=== PATIENT | female | born 1975 | race Caucasian/White ===

== ENCOUNTER 2017-10-29 12:49 | Inpatient (IN) | payer OTHER ==
[2017-10-29 13:05] LABS: ABSOLUTE BASOPHILS # (AUTO) 0.1 10^3/uL (0.0-0.2); ABSOLUTE EOSINOPHILS # (AUTO) 0.3 10^3/uL (0.0-0.6); ABSOLUTE LYMPHOCYTES (AUTO) 3.7 10^3/uL (0.5-4.7); ABSOLUTE MONOCYTES (AUTO) 0.5 10^3/uL (0.1-1.4); ABSOLUTE NEUT (AUTO) 7.9 10^3/uL (1.7-8.2); BASOPHILS % (AUTO) 0.7 % (0-2); EOSINOPHILS % (AUTO) 2.6 % (0-6); HEMATOCRIT 41.8 % (36.0-47.0); HEMOGLOBIN 13.8 g/dL (12.0-15.5); LYMPHOCYTES % (AUTO) 29.4 % (13-45); MEAN CORPUSCULAR HEMOGLOBIN 29.3 pg (27.0-33.4); MEAN CORPUSCULAR HGB CONC 33.1 g/dL (32.0-36.0); MEAN CORPUSCULAR VOLUME 89 fl (80-97); MONOCYTES % (AUTO) 3.8 % (3-13); PLATELET COUNT 302 10^3/uL (150-450); RED BLOOD COUNT 4.72 10^6/uL (3.72-5.28); RED CELL DISTRIBUTION WIDTH 14.3 % (11.5-14.0); SEGMENTED NEUTROPHILS % (AUTO) 63.5 % (42-78); TOTAL CELLS COUNTED % (AUTO) 100 %; WHITE BLOOD COUNT 12.4 10^3/uL (4.0-10.5)
[2017-10-29 13:07] LABS: INTERNATIONAL RATION (INR) 0.85
--- NOTE | 2017-10-29 13:13 | RADIOLOGY REPORT (SQ) ---
EXAM DESCRIPTION: CT HEAD WITHOUT COMPLETED DATE/TIME: 10/29/2017 1:02 pm REASON FOR STUDY: Abnormal Speech COMPARISON: None. TECHNIQUE: Axial images acquired through the brain without intravenous contrast. Images reviewed wi th bone, brain and subdural windows. Additional sagittal and coronal reconstructions were generated. Images stored on PACS. All CT scanners at this facility use dose modulation, iterative reconstruction, and/or weight based d osing when appropriate to reduce radiation dose to as low as reasonably achievable (ALARA). [facility]: Dose Right [facility]: CareDose [facility]: Dose Right [facility]: Teradose 4D [facility]: Peerius RADIATION DOSE: CT Rad equipment meets quality standard of care and radiation dose reduction techniq ues were employed. CTDIvol: 53.2 mGy. DLP: 1124 mGy-cm. mGy. LIMITATIONS: None. FINDINGS: VENTRICLES: Normal size and contour. CEREBRUM: No masses. No hemorrhage. No midline shift. No evidence for acute infarction. Normal gra y/white matter differentiation. No areas of low density in the white matter. CEREBELLUM: No masses. No hemorrhage. No alteration of density. No evidence for acute infarction. EXTRAAXIAL SPACES: No fluid collections. No masses. ORBITS AND GLOBE: No intra- or extraconal masses. Normal contour of globe without masses. CALVARIUM: No fracture. PARANASAL SINUSES: No fluid or mucosal thickening. SOFT TISSUES: No mass or hematoma. OTHER: No other significant finding. IMPRESSION: NORMAL BRAIN CT WITHOUT CONTRAST. EVIDENCE OF ACUTE STROKE: NO. COMMENT: Pertinent findings on the imaging study reported as a CRITICAL RESULT to Dr Hernandez at13:00 on 10/29/2017. Category of Critical Result: CT code stroke Quality ID # [id number]: Final reports with documentation of one or more dose reduction techniques (e.g., Au tomated exposure control, adjustment of the mA and/or kV according to patient size, use of iterative reconstruction technique) TECHNICAL DOCUMENTATION: JOB ID: [id number]- All Rights Reserved Reading location - IP/workstation name: [facility]
[2017-10-29 13:25] LABS: ALANINE AMINOTRANSFERASE 17 U/L (9-52); ALBUMIN 3.9 g/dL (3.5-5.0); ALKALINE PHOSPHATASE 100 U/L (38-126); ANION GAP 12 (5-19); ASPARTATE AMINO TRANSFERASE 23 U/L (14-36); BILIRUBIN,DIRECT 0.2 mg/dL (0.0-0.4); BILIRUBIN,TOTAL 0.2 mg/dL (0.2-1.3); BLOOD UREA NITROGEN 7 mg/dL (7-20); CALCIUM 9.7 mg/dL (8.4-10.2); CARBON DIOXIDE 29 mmol/L (22-30); CHLORIDE 101 mmol/L (98-107); CREATINE KINASE 42 U/L (30-135); GLUCOSE 100 mg/dL (75-110); POTASSIUM 4.2 mmol/L (3.6-5.0); SODIUM 142.4 mmol/L (137-145); TOTAL PROTEIN 6.3 g/dL (6.3-8.2)
[2017-10-29 13:36] LABS: CREATINE KINASE MB 0.26 ng/mL (<4.55)
[2017-10-29 13:38] LABS: TROPONIN I < 0.012 ng/mL
--- NOTE | 2017-10-29 13:38 | EKG REPORT ---
SEVERITY:- BORDERLINE ECG - SINUS RHYTHM BORDERLINE T ABNORMALITIES, DIFFUSE LEADS : Confirmed by: Terrance Feliz MD 29-Oct-2017 13:37:15
--- NOTE | 2017-10-29 13:38 | RADIOLOGY REPORT (SQ) ---
EXAM DESCRIPTION: CHEST SINGLE VIEW COMPLETED DATE/TIME: 10/29/2017 1:14 pm REASON FOR STUDY: Abnormal Speech COMPARISON: None. EXAM PARAMETERS: NUMBER OF VIEWS: One view. TECHNIQUE: Single frontal radiographic view of the chest acquired. RADIATION DOSE: NA LIMITATIONS: None. FINDINGS: LUNGS AND PLEURA: No opacities, masses or pneumothorax. No pleural effusion. Some minimal linear densities are identified in left lower lung field most consistent with subsegmental atelectas is. MEDIASTINUM AND HILAR STRUCTURES: No masses. Contour normal. HEART AND VASCULAR STRUCTURES: Heart normal in size. Normal vasculature. BONES: No acute findings. HARDWARE: None in the chest. OTHER: No other significant finding. IMPRESSION: NO ACUTE RADIOGRAPHIC FINDING IN THE CHEST. TECHNICAL DOCUMENTATION: JOB ID: [id number] [employer]- All Rights Reserved Reading location - IP/workstation name: [email or web address]
--- NOTE | 2017-10-29 13:58 | ER Document Report ---
ED General - General Chief Complaint: S/S of Possible Stroke Stated Complaint: POSSIBLE STROKE Time Seen by Provider: 10/29/17 13:34 Notes: This is a 42-year-old female patient who was at work. [place] a little abnormal. [place] like she was going to pass out but did not. [place] like her feet gave out from underneath her. Was having a hard time talking. Did not have any focal weakness. Went home. Family member stated that she was in acting normal. States that they were concerned she was having a stroke. Patient was brought in by ambulance. On arrival patient was evaluated immediately on arrival. Had no slurred speech. NIH stroke scale was 0. Patient was taken to CT scan. Patient reevaluated patient got back from CT scan. CT completed the workup in [facility]. Patient states that she intermittently has fevers and that she has seen Dr. Canada in the [facility] and they have run tests on her but still do not know why she is having intermittent fevers. She does state that she has a history of headaches. Has had some altered mental status with migraines in the past. TRAVEL OUTSIDE OF THE [place] IN LAST 30 DAYS: No - [facility] Onset: Just prior to arrival - Related Data Allergies/Adverse Reactions: No Known Allergies Allergy (Unverified 02/17/14 15:08) Past Medical History - General Information source: Patient - Social History Smoking Status: Current Every Day Smoker Cigarette use (# per day): Yes Chew tobacco use (# tins/day): No Frequency of alcohol use: Occasional Drug Abuse: None Lives with: Family Family History: Malignancy Patient has suicidal ideation: No Patient has homicidal ideation: No - Past Medical History Cardiac Medical History: Denies: Hx Coronary Artery Disease, Hx Heart Attack, Hx Hypertension Pulmonary Medical History: Denies: Hx Asthma, Hx Bronchitis, Hx COPD, Hx Pneumonia Neurological Medical History: Denies: Hx Cerebrovascular Accident, Hx Seizures Renal/ Medical History: Denies: Hx Peritoneal Dialysis Musculoskeltal Medical History: Denies Hx Arthritis Review of Systems - Review of Systems Constitutional: denies: Fever, Malaise, Weakness EENT: denies: Eye pain, Double vision, Ear discharge, Throat swelling Cardiovascular: denies: Chest pain, Heart racing, Orthopnea, Dyspnea, Syncope, Dizziness Respiratory: denies: Cough, Hurts to breathe, Hemoptysis, Wheezing Gastrointestinal: denies: Abdominal pain, Nausea, Vomiting Genitourinary: denies: Burning, Dysuria, Frequency Musculoskeletal: denies: Back pain, Muscle pain, Leg swelling Skin: denies: Change in color, Dryness, Lesions, Lumps, Rash Hematologic/Lymphatic: denies: Anemia, Blood clots, Easy bleeding, Easy bruising Neurological/Psychological: Confusion, Gait changes, Headaches. denies: Weakness, Paralysis, Seizure, Lost consciousness Physical Exam - Vital signs Vitals: Pulse Resp BP Pulse Ox 78 17 103/73 94 10/29/17 13:42 10/29/17 13:42 10/29/17 13:42 10/29/17 13:42 Interpretation: Normal - General General appearance: Appears well, Alert - HEENT Head: Normocephalic, Atraumatic Eyes: Normal Pupils: PERRL - Respiratory Respiratory status: No respiratory distress Chest status: Nontender Breath sounds: Normal Chest palpation: Normal - Cardiovascular Rhythm: Regular Heart sounds: Normal auscultation Murmur: No - Abdominal Inspection: Normal Distension: No distension Bowel sounds: Normal Tenderness: Nontender Organomegaly: No organomegaly - Back Back: Normal, Nontender - Extremities General upper extremity: Normal inspection, Nontender, Normal color, Normal ROM , Normal temperature General lower extremity: Normal inspection, Nontender, Normal color, Normal ROM , Normal temperature, Normal weight bearing. No: Mary Beth's sign - Neurological Neuro grossly intact: Yes Cognition: Normal Orientation: AAOx4 Avni Coma Scale Eye Opening: Spontaneous Avni Coma Scale Verbal: Oriented Avni Coma Scale Motor: Obeys Commands Avni Coma Scale Total: 15 Speech: Normal Cranial nerves: Normal Cerebellar coordination: Normal Motor strength normal: LUE, RUE, LLE, RLE Additional motor exam normals: Equal emt paramedic. No: Involuntary movements, Pronator drift, Weakness, Hemiplegia Babinski reflex: Normal (flexor plantar) Sensory: Normal - Psychological Associated symptoms: Normal affect, Normal mood - Skin Skin Temperature: Warm Skin Moisture: Dry Skin Color: Normal Course - Re-evaluation Re-evalutation: 10/29/17 14:[address] was ordered from the ambulance bay. Negative head CT. Chest x-ray unremarkable. Labs show slightly elevated WBC count. We will add on Lyme's titer based on the fact the patient has been having some headaches and fevers of unknown origin with a questionable tick bite in the past. Try to get some migraine treatment to see if this will help as well. 10/29/17 14:22 Chest X-Ray 10/29/17 12:54 IMPRESSION: NO ACUTE RADIOGRAPHIC FINDING IN THE CHEST. Head CT 10/29/17 12:54 IMPRESSION: NORMAL BRAIN CT WITHOUT CONTRAST. EVIDENCE OF ACUTE STROKE: NO. 10/29/17 16:[address] and chest x-ray unremarkable. Patient still seems a little groggy. Uncertain whether this represents a TIA or just altered mental status. With this history of intermittent fevers I am concerned. The Lyme's titers were added. At this time I feel uncomfortable discharging. I feel the patient needs to be admitted for observation with ultrasound potentially echocardiogram potentially, repeat cardiac labs potentially and may be even a spinal tap. I did not feel compelled at this time to do a spinal tap in the ER as patient is not acutely altered and she does not have a fever. I have discussed the case with hospitalist. Hospitalist will evaluate patient. We did discuss potentially having interventional radiology versus anesthesia do an LP to complete the workup. I do agree with this plan at this time. Patient is comfortable staying. Will admit to Dr. Guo - Vital Signs Vital signs: Temp Pulse Resp BP Pulse Ox 78 17 103/73 94 10/29/17 13:42 10/29/17 13:42 10/29/17 13:42 10/29/17 13:42 - Laboratory Result Diagrams: 10/29/17 12:24 10/29/17 12:24 Laboratory results interpreted by me: 10/29/17 10/29/17 10/29/17 12:24 12:24 12:24 WBC 12.4 H RDW 14.3 H APTT 36.0 H Neonat Total Bilirubin 0.0 L - EKG Interpretation by Mi EKG shows normal: Sinus rhythm, [place], Intervals, QRS Complexes, ST-T Waves Discharge - Discharge Clinical Impression: Mental status alteration Qualifiers: Altered mental status type: unspecified Qualified Code(s): R41.82 - Altered mental status, unspecified Leukocytosis Qualifiers: Leukocytosis type: unspecified Qualified Code(s): D72.829 - Elevated white blood cell count, unspecified Condition: Good Disposition: ADMITTED OBSERVATION Admitting Provider: Hospitalist - [facility] Unit Admitted: Medical Floor Referrals: RON CANADA MD [Primary Care Provider] - Follow up as needed
[2017-10-29] MEDS ORDERED: KETOROLAC TROMETHAMINE INJ/PF 30 MG/1 ML SDV IV ONE (14:17)
[2017-10-29] MEDS ORDERED: DIPHENHYDRAMINE HCL 50 MG/ML VIAL IV ONE (14:18)
[2017-10-29] MEDS ORDERED: METOCLOPRAMIDE HCL INJ/PF 10 MG/2 ML SDV IV ONE (14:18)
[2017-10-29 14:59] LABS: APPEARANCE,URINE CLEAR; BILIRUBIN,URINE NEGATIVE (NEGATIVE); COLOR,URINE STRAW; GLUCOSE, URINE NEGATIVE (NEGATIVE); KETONES,URINE NEGATIVE (NEGATIVE); LEUKOCYTE ESTERASE,URINE NEGATIVE (NEGATIVE); NITRITE,URINE NEGATIVE (NEGATIVE); PROTEIN,URINE NEGATIVE (NEGATIVE); URINE SPECIFIC GRAVITY 1.003; UROBILINOGEN,URINE NEGATIVE mg/dL (<2.0)
[2017-10-29] MEDS ORDERED: ASPIRIN 325 MG TABLET PO ONE (15:53)
--- NOTE | 2017-10-29 16:04 | RADIOLOGY REPORT (SQ) ---
EXAM DESCRIPTION: MRI HEAD WITHOUT COMPLETED DATE/TIME: 10/29/2017 3:25 pm REASON FOR STUDY: altered mental status COMPARISON: CT brain 10/29/2017 TECHNIQUE: Multiplanar imaging includes non-contrasted T1, T2, FLAIR, and diffusion with ADC map seq uences. Images stored on PACS. LIMITATIONS: None. FINDINGS: ANATOMY: No developmental anomalies. Normal vascular flow voids. Pituitary fossa normal. CSF SPACES: Normal in size and contour. No hemorrhage. CEREBRUM: Sulci and gyri normal in size and contour. Normal white matter signal on FLAIR imaging. No evidence of hemorrhage, mass, or extraaxial fluid collection. POSTERIOR FOSSA: No signal alteration. No hemorrhage. No edema, masses or mass effect. Internal oz tory canals, cerebello-pontine angles, mastoids normal. DIFFUSION IMAGING: Negative for acute or sub-acute infarction. ORBITS: No masses. Globes normal. PARANASAL SINUSES: Mucous membrane thickening right maxillary sinus with mucous or serous retention cyst. OTHER: No other significant finding. IMPRESSION: Unremarkable study. No MR evidence of acute ischemic change. EVIDENCE OF ACUTE STROKE: NO. TECHNICAL DOCUMENTATION: JOB ID: [id number]- All Rights Reserved Reading location - IP/workstation name: [facility]
[2017-10-29] MEDS ORDERED: ONDANSETRON HCL INJ/PF 4 MG/2 ML SDV IV PRN (16:42)
[2017-10-29] MEDS ORDERED: ALBUTEROL SULFATE 0.083% NEB 2.5 MG/3 ML AMPUL NEB PRN (16:42)
[2017-10-29] MEDS ORDERED: ACETAMINOPHEN 325 MG TABLET PO PRN (16:42)
[2017-10-29] MEDS ORDERED: ONDANSETRON 4 MG TAB.RAPDIS PO PRN (16:42)
[2017-10-29] MEDS ORDERED: BUTALB/ACETAMINOPHEN/CAFFEINE 1 TAB EACH PO PRN (16:56)
--- NOTE | 2017-10-29 17:28 | PDOC H&P ---
History of Present Illness Admission Date/PCP: 10/29/17 16:38 RON YUSUF MD Patient complains of: Confusion slurred speech History of Present Illness: SHARAN BRIONES is a 42 year old female with past medical history of Depression Hyperlipidemia Migraines Tobacco dependence- half a pack a day GERD Meds (doses unknown): Prozac Zantac She presented to the ER and is with her family. The patient is a poor historian and is somewhat confused and does not recall the events since last night. 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 They did not notice facial droop or focal weakness. Her coworkers wanted her to come to the ED but she refused. Family however convinced her to come in. Her son reports that last night she complained of numbness and tingling of the right side of her body. patient does not recall this. When evaluated by the ER physician- she had no slurred speech or focal symptoms - NIH stroke scale-0. CT brain and MRI withinh normal limits. She has a mild leukocytosis and reports fever. The family reports a one year history of high grade fevers lasting upto a week, temp up to 102 degrees F. This is associated with joint pain and swelling. No associated dysuria/ cough/sore throat/ abdominal/diarrhea. Reports no unintentional weight loss but has been having night sweats. 2 year history of episodes of confusion and was worked up for possible seizures (negative EEG per family), also told she had complex migraines. She had abnormal LFTs recently and has positive tick exposure and a recent red rash under her L arm. never worked up for MS. Was seeing a neurologist in [place]- has not seen one in more than a year. Patient is a very poor historian and the history is very fragmented. Mammogram 6 months ago was reportedly normal. She is awake alert and oriented x3 but slow to respond to questions. No slurred speech. 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 They are agreeable. Past Medical History Cardiac Medical History: Reports: Hyperlipidema Neurological Medical History: Reports: Migraine Endocrine Medical History: Denies: Diabetes Mellitus Type 2 GI Medical History: Reports: Gastroesophageal Reflux Disease Musculoskeltal Medical History: Reports: Arthritis Hematology: Reports: Anemia Social History Information Source: Patient Lives with: Family Smoking Status: Current Every Day Smoker Frequency of Alcohol Use: None Hx Recreational Drug Use: No - Advance Directive Resuscitation Status: Full Code Family History Family History: Malignancy - Thyroid Lung and Kidney cancer Parental Family History Reviewed: Yes Children Family History Reviewed: Yes Sibling(s) Family History Reviewed.: Yes Medication/Allergy Home Medications: Atorvastatin Calcium [Lipitor 20 mg Tablet] 1 tab PO DAILY 02/18/14 Eszopiclone [Lunesta] 1 tab PO QHS 02/18/14 Omeprazole [Prilosec] 20 mg PO DAILY 02/18/14 Ranitidine HCl [Zantac 150 mg Tablet] 1 tab PO DAILY 02/18/14 Allergies/Adverse Reactions: No Known Allergies Allergy (Unverified 02/17/14 15:08) Review of Systems Constitutional: PRESENT: fever(s), headache(s) Eyes: PRESENT: visual disturbances - patchy dark spots in her field of vision intermittently Ears: ABSENT: hearing changes Nose, Mouth, and Throat: ABSENT: sore throat Cardiovascular: ABSENT: chest pain Respiratory: ABSENT: dyspnea Gastrointestinal: ABSENT: abdominal pain, diarrhea, vomiting Genitourinary: ABSENT: dysuria Musculoskeletal: PRESENT: joint swelling. ABSENT: muscle weakness Integumentary: PRESENT: rash Neurological: PRESENT: abnormal speech, confusion, memory loss, numbness, paresthesias. ABSENT: convulsions, focal weakness Psychiatric: PRESENT: depression Endocrine: ABSENT: heat intolerance Hematologic/Lymphatic: ABSENT: easy bleeding Allergic/Immunologic: ABSENT: seasonal rhinorrhea Physical Exam Vital Signs: Temp Pulse Resp BP Pulse Ox 78 17 103/73 94 10/29/17 13:42 10/29/17 13:42 10/29/17 13:42 10/29/17 13:42 General appearance: PRESENT: no acute distress Head exam: PRESENT: normocephalic Eye exam: PRESENT: PERRLA. ABSENT: scleral icterus Ear exam: PRESENT: normal external ear exam Mouth exam: PRESENT: moist Neck exam: ABSENT: tracheal deviation Respiratory exam: PRESENT: symmetrical, unlabored. ABSENT: crackles, wheezes Cardiovascular exam: PRESENT: RRR GI/Abdominal exam: PRESENT: normal bowel sounds, soft. ABSENT: Churchill's sign, tenderness Rectal exam: PRESENT: deferred Gentrourinary exam: ABSENT: indwelling catheter Extremities exam: ABSENT: calf tenderness, joint swelling, pedal edema Musculoskeletal exam: PRESENT: normal inspection Neurological exam: PRESENT: alert, awake, oriented to person, oriented to place , oriented to time, CN II-XII grossly intact Psychiatric exam: PRESENT: flat affect Skin exam: ABSENT: petechiae Results Impressions: Chest X-Ray 10/29/17 12:54 IMPRESSION: NO ACUTE RADIOGRAPHIC FINDING IN THE CHEST. Head CT 10/29/17 12:54 IMPRESSION: NORMAL BRAIN CT WITHOUT CONTRAST. EVIDENCE OF ACUTE STROKE: NO. Head MRI 10/29/17 13:35 IMPRESSION: Unremarkable study. No MR evidence of acute ischemic change. EVIDENCE OF ACUTE STROKE: NO. Assessment & Plan - Diagnosis (1) Leukocytosis Qualifiers: Leukocytosis type: unspecified Qualified Code(s): D72.829 - Elevated white blood cell count, unspecified Is this a current diagnosis for this admission?: Yes Plan: See below. Blood cultures ordered. UA and Chest Xray normal (2) Mental status alteration Qualifiers: Altered mental status type: unspecified Qualified Code(s): R41.82 - Altered mental status, unspecified Is this a current diagnosis for this admission?: Yes Plan: Differential includes GLUING MACHINE OFFBEARER lyme vs lymphoma vs MS. Check Lyme Ab, HIV, DORIS, RF, CRP, ESR, RPR CSF VDRL, Lyme Ab, cytology, Oligoclonal bands, cell count, culture, HSV PCR Consider ID and Neurology consult once preliminary results back. Check EEG. (3) TIA (transient ischemic attack) Is this a current diagnosis for this admission?: Yes Plan: Possible. She was given aspirin. Check Echo and Carotid dopplers. Check HbA1c and Lipid profile. Cardiac monitoring. - Time Time Spent: Greater than 70 Minutes
[2017-10-29] MEDS: LANSOPRAZOLE 30 MG TAB.RAP.DR PO SCH (21:55)
[2017-10-30 05:02] LABS: ABSOLUTE BASOPHILS # (AUTO) 0.1 10^3/uL (0.0-0.2); ABSOLUTE EOSINOPHILS # (AUTO) 0.3 10^3/uL (0.0-0.6); ABSOLUTE LYMPHOCYTES (AUTO) 3.8 10^3/uL (0.5-4.7); ABSOLUTE MONOCYTES (AUTO) 0.5 10^3/uL (0.1-1.4); ABSOLUTE NEUT (AUTO) 4.5 10^3/uL (1.7-8.2); BASOPHILS % (AUTO) 0.9 % (0-2); EOSINOPHILS % (AUTO) 3.5 % (0-6); HEMATOCRIT 38.7 % (36.0-47.0); HEMOGLOBIN 12.9 g/dL (12.0-15.5); LYMPHOCYTES % (AUTO) 41.4 % (13-45); MEAN CORPUSCULAR HEMOGLOBIN 29.1 pg (27.0-33.4); MEAN CORPUSCULAR HGB CONC 33.4 g/dL (32.0-36.0); MEAN CORPUSCULAR VOLUME 87 fl (80-97); MONOCYTES % (AUTO) 5.1 % (3-13); PLATELET COUNT 255 10^3/uL (150-450); RED BLOOD COUNT 4.43 10^6/uL (3.72-5.28); RED CELL DISTRIBUTION WIDTH 14.4 % (11.5-14.0); SEGMENTED NEUTROPHILS % (AUTO) 49.1 % (42-78); TOTAL CELLS COUNTED % (AUTO) 100 %; WHITE BLOOD COUNT 9.2 10^3/uL (4.0-10.5)
[2017-10-30 05:29] LABS: ALANINE AMINOTRANSFERASE 26 U/L (9-52); ALBUMIN 3.1 g/dL (3.5-5.0); ALKALINE PHOSPHATASE 96 U/L (38-126); ANION GAP 8 (5-19); ASPARTATE AMINO TRANSFERASE 27 U/L (14-36); BILIRUBIN,DIRECT 0.2 mg/dL (0.0-0.4); BILIRUBIN,TOTAL 0.2 mg/dL (0.2-1.3); BLOOD UREA NITROGEN 9 mg/dL (7-20); CALCIUM 9.6 mg/dL (8.4-10.2); CARBON DIOXIDE 27 mmol/L (22-30); CHLORIDE 107 mmol/L (98-107); CHOLESTEROL 238.79 mg/dL (0-200); GLUCOSE 87 mg/dL (75-110); POTASSIUM 4.2 mmol/L (3.6-5.0); TOTAL PROTEIN 5.7 g/dL (6.3-8.2); TRIGLYCERIDES 219 mg/dL (<150)
[2017-10-30 05:40] LABS: DIRECT LDL 163 mg/dL (<100)
[2017-10-30 05:47] LABS: VLDL CHOLESTEROL 43.8 mg/dL (10-31)
[2017-10-30] MEDS: LANSOPRAZOLE 30 MG TAB.RAP.DR PO SCH ×2 (05:54→18:45)
--- NOTE | 2017-10-30 11:36 | RADIOLOGY REPORT (SQ) ---
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 TECHNIQUE: Fluoroscopic guided lumbar puncture. LIMITATIONS: None. PROCEDURE: After written consent and assessment were obtained, the patient was brought into the fluo roscopy room and placed prone on the table. The patient's lower back was prepped in a sterile fashio n and an entry site was selected under live fluoroscopic guidance. The entry site was anesthetized wi th 4 mL of 1% lidocaine. A 20 gauge spinal needle was advanced through the skin and into the thecal s ac left paracentral L2-3 level. After approximately 10.5 ml was drained, the needle was removed and a sterile bandage was placed of the site. Specimens were sent to the lab for testing. A fluoroscopi c spot image was saved to PACS confirming level access. FINDINGS: Clear CSF, opening pressure 13 cm of water. IMPRESSION: Lumbar puncture under fluoroscopy. No immediate complication. Lab analysis of fluid is pending. COMMENT: Patient medication list reviewed: Yes- Quality ID# 130:Eligible professional attests to doc umenting in the medical record they obtained, updated, or reviewed the patient's current medications. . Quality ID 145: Final reports for procedures using fluoroscopy that document radiation exposure kristian ritika, or exposure time and number of fluorographic images (if radiation exposure indices are not avail able) TECHNICAL DOCUMENTATION: JOB ID: [id number] [employer]- All Rights Reserved Reading location - IP/workstation name: [facility]
--- NOTE | 2017-10-30 11:36 | RADIOLOGY REPORT (SQ) ---
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 TECHNIQUE: Fluoroscopic guided lumbar puncture. LIMITATIONS: None. PROCEDURE: After written consent and assessment were obtained, the patient was brought into the fluo roscopy room and placed prone on the table. The patient's lower back was prepped in a sterile fashio n and an entry site was selected under live fluoroscopic guidance. The entry site was anesthetized wi th 4 mL of 1% lidocaine. A 20 gauge spinal needle was advanced through the skin and into the thecal s ac left paracentral L2-3 level. After approximately 10.5 ml was drained, the needle was removed and a sterile bandage was placed of the site. Specimens were sent to the lab for testing. A fluoroscopi c spot image was saved to PACS confirming level access. FINDINGS: Clear CSF, opening pressure 13 cm of water. IMPRESSION: Lumbar puncture under fluoroscopy. No immediate complication. Lab analysis of fluid is pending. COMMENT: Patient medication list reviewed: Yes- Quality ID# 130:Eligible professional attests to doc umenting in the medical record they obtained, updated, or reviewed the patient's current medications. . Quality ID 145: Final reports for procedures using fluoroscopy that document radiation exposure kristian ritika, or exposure time and number of fluorographic images (if radiation exposure indices are not avail able) TECHNICAL DOCUMENTATION: JOB ID: [id number] [employer]- All Rights Reserved Reading location - IP/workstation name: [facility]
[2017-10-30 12:09] LABS: APPEARANCE ALL TUBES CLEAR; COLOR ALL TUBES COLORLESS; CSF TOTAL VOLUME 10.8 CC; CSF TUBE NUMBER 3; RED BLOOD CELL,CSF 0 /uL (0-10); VOLUME TUBE 1 2.5 CC; VOLUME TUBE 3 2.8 CC; VOLUME TUBE 4 3.5 CC
[2017-10-30 12:10] LABS: WHITE BLOOD CELL,CSF 1 /uL (0-5)
[2017-10-30 12:36] LABS: GLUCOSE,CSF 56 mg/dL (40-70); PROTEIN,CSF 51 mg/dL (12-60)
[2017-10-30 12:38] LABS: ANTICHROMATIN AB <0.2 AI (0.0-0.9); CENTROMERE B AB <0.2 AI (0.0-0.9); JO-1 ANTIBODY (ANACOMP) <0.2 AI (0.0-0.9); RNP AB <0.2 AI (0.0-0.9); SCLERODERMA-70 ANTIBODIES <0.2 AI (0.0-0.9); SJOGREN'S ANTI-SS-B AB <0.2 AI (0.0-0.9); SJOGREN'S SS-A ANTIBODY <0.2 AI (0.0-0.9); SMITH AB ANA <0.2 AI (0.0-0.9)
[2017-10-30 13:03] LABS: DNA DOUBLE STRAND ANTIBODY ANA 1 IU/mL (0-9)
[2017-10-30 13:25] LABS: H. INFLUENZAE TYPE B AG NEGATIVE (NEGATIVE); S. PNEUMONIAE AG NEGATIVE (NEGATIVE); STREP. GROUP B AG NEGATIVE (NEGATIVE)
--- NOTE | 2017-10-30 14:09 | RADIOLOGY REPORT (SQ) ---
EXAM DESCRIPTION: CAROTID DOPPLER COMPLETED DATE/TIME: 10/30/2017 1:08 pm REASON FOR STUDY: TIA COMPARISON: MRI brain 10/29/2017 CT brain 10/29/2017 TECHNIQUE: Grayscale ultrasound, Doppler velocity and spectra, and color Doppler images acquired of the extra-cranial carotid and vertebral arteries. Images stored on PACS. LIMITATIONS: None. FINDINGS: RIGHT CAROTID CCA Velocities: Within normal limits. ICA Velocities Peak systolic 0.85 m/s. End diastolic 0.39 m/s. Proximal ICA/CCA peak systolic ratio 1.4. Spectra normal. No significant plaque. LEFT CAROTID CCA Velocities: Within normal limits. ICA Velocities Peak systolic 0.73 m/s. End diastolic 0.30 m/s. Proximal ICA/CCA peak systolic ratio 1.2. Spectra normal. No significant plaque. VERTEBRAL ARTERIES: Antegrade flow. Normal waveforms. SUBCLAVIAN ARTERIES: Not evaluated OTHER: No other significant finding. IMPRESSION: NO HEMODYNAMICALLY SIGNIFICANT STENOSIS. COMMENT: Quality ID #195: Velocity criteria are extrapolated from the diameter data as defined by t he Society of Radiologists in Ultrasound Consensus Conference. Radiology 2003: 229; 340-346. TECHNICAL DOCUMENTATION: JOB ID: [id number] [employer]- All Rights Reserved Reading location - IP/workstation name: [facility]
--- NOTE | 2017-10-30 15:11 | PDOC PROGRESS REPORT ---
Subjective Progress Note for:: 10/30/17 Subjective:: She has not had any episodes since she has been here. Boyfriend states she frequently will drop off to sleep in the middle of the conversation. She has had a sleep study that she informs me was "negative". She snores loudly, though boyfriend has not noticed her stopping breathing. She reports that she has temperatures over 102, associated with chills and sweats. These are the intervals when she has her attacks. The febrile episodes wax and wane for about 3 days, and then was resolve continuously. She is a history of cancer in her grandparents one had lung cancer and the other kidney. No other family history of malignancy. These episodes have been on and off for the last couple years. She has no associated numbness or tingling. She is a history of migraines with visual changes, but those do not appear to be correlated with her fevers. She denies diplopia. Fevers are associated with headache and back pain, but the headache is different than her migraine. 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 Physical Exam Vital Signs: Temp Pulse Resp BP Pulse Ox 97.5 F 75 16 108/70 95 10/30/17 11:17 10/30/17 13:28 10/30/17 13:28 10/30/17 11:17 10/30/17 13:28 Intake & Output 10/29/17 10/30/17 10/31/17 05:59 05:59 05:59 Intake Total 15 Balance 15 Weight 192 lb 3.889 oz General appearance: PRESENT: no acute distress, cooperative, obese Respiratory exam: PRESENT: clear to auscultation devyn Cardiovascular exam: PRESENT: RRR GI/Abdominal exam: PRESENT: soft Extremities exam: ABSENT: pedal edema Neurological exam: PRESENT: alert Psychiatric exam: PRESENT: appropriate affect Skin exam: PRESENT: dry, warm Results Laboratory Results: 10/30/17 04:18 10/30/17 04:18 10/30/17 10/30/17 10/30/17 04:18 04:18 04:18 WBC 9.2 RBC 4.43 Hgb 12.9 Hct 38.7 MCV 87 MCH 29.1 MCHC 33.4 RDW 14.4 H Plt Count 255 Seg Neutrophils % 49.1 Lymphocytes % 41.4 Monocytes % 5.1 Eosinophils % 3.5 Basophils % 0.9 Absolute Neutrophils 4.5 Absolute Lymphocytes 3.8 Absolute Monocytes 0.5 Absolute Eosinophils 0.3 Absolute Basophils 0.1 Sodium 142.0 Potassium 4.2 Chloride 107 Carbon Dioxide 27 Anion Gap 8 BUN 9 Creatinine 0.85 Est GFR ( Amer) > 60 Est GFR (Non-Af Amer) > 60 Glucose 87 Calcium 9.6 Phosphorus 6.0 H Magnesium 2.1 Total Bilirubin 0.2 AST 27 ALT 26 Alkaline Phosphatase 96 Total Protein 5.7 L Albumin 3.1 L Triglycerides 219 H Cholesterol 238.79 H LDL Cholesterol Direct 163 H VLDL Cholesterol 43.8 H HDL Cholesterol 39 L TSH 0.69 Fluid Tube Number CSF Volume CSF Appearance CSF Color CSF WBC CSF RBC CSF Comment CSF Glucose CSF Total Protein 10/30/17 10/30/17 10/30/17 09:22 09:22 09:22 WBC RBC Hgb Hct MCV MCH MCHC RDW Plt Count Seg Neutrophils % Lymphocytes % Monocytes % Eosinophils % Basophils % Absolute Neutrophils Absolute Lymphocytes Absolute Monocytes Absolute Eosinophils Absolute Basophils Sodium Potassium Chloride Carbon Dioxide Anion Gap BUN Creatinine Est GFR ( Amer) Est GFR (Non-Af Amer) Glucose Calcium Phosphorus Magnesium Total Bilirubin AST ALT Alkaline Phosphatase Total Protein Albumin Triglycerides Cholesterol LDL Cholesterol Direct VLDL Cholesterol HDL Cholesterol TSH Fluid Tube Number 3 CSF Volume 10.8 CSF Appearance CLEAR CSF Color COLORLESS CSF WBC 1 CSF RBC 0 CSF Comment CSF CULTURE ORDERED CSF Glucose 56 CSF Total Protein 51 Impressions: Chest X-Ray 10/29/17 12:54 IMPRESSION: NO ACUTE RADIOGRAPHIC FINDING IN THE CHEST. Head CT 10/29/17 12:54 IMPRESSION: NORMAL BRAIN CT WITHOUT CONTRAST. EVIDENCE OF ACUTE STROKE: NO. Head MRI 10/29/17 13:35 IMPRESSION: Unremarkable study. No MR evidence of acute ischemic change. EVIDENCE OF ACUTE STROKE: NO. Carotid Doppler Study 10/30/17 00:00 IMPRESSION: NO HEMODYNAMICALLY SIGNIFICANT STENOSIS. Guidance Fluoroscopy 10/30/17 00:00 IMPRESSION: Lumbar puncture under fluoroscopy. No immediate complication. Lab analysis of fluid is pending. Lumbar Puncture 10/30/17 00:00 IMPRESSION: Lumbar puncture under fluoroscopy. No immediate complication. Lab analysis of fluid is pending. Assessment & Plan - Diagnosis (1) Transient confusion Is this a current diagnosis for this admission?: Yes Plan: Unclear etiology. Workup to date has been nondiagnostic. (2) Transient loss of consciousness Is this a current diagnosis for this admission?: Yes Plan: She does not lose muscle tone. She becomes weak and unaware of her surroundings , but does not fall out of a chair. (3) Recurrent fever of unknown cause Is this a current diagnosis for this admission?: Yes Plan: I would like to get a blood culture during 1 of her fever spikes, but she has not had one here in the hospital. I will do a screening CT abdomen chest and pelvis. Rheumatologic workup is pending, CSF studies are pending, though she does not have an elevated CSF white count, and grossly her CSF was benign.
[2017-10-30 17:37] LABS: ANTIMYELOPEROXIDASE (MPO) AB <9.0 U/mL (0.0-9.0); ANTIPROTEINASE 3 (PR-3) AB <3.5 U/mL (0.0-3.5); CYTOPLASMIC (C-ANCA) <1:20 titer (Neg:<1:20)
--- NOTE | 2017-10-30 19:41 | RADIOLOGY REPORT (SQ) ---
EXAM DESCRIPTION: CT CHEST WITH COMPLETED DATE/TIME: 10/30/2017 6:17 pm REASON FOR STUDY: recurrent fever COMPARISON: None. TECHNIQUE: CT scan of the chest performed using helical scanning technique with dynamic intravenous contrast injection. Images reviewed with lung, soft tissue and bone windows. Reconstructed coronal and sagittal MPR images reviewed. All images stored on PACS. All CT scanners at this facility use dose modulation, iterative reconstruction, and/or weight based d osing when appropriate to reduce radiation dose to as low as reasonably achievable (ALARA). [facility]: Dose Right [facility]: CareDose [facility]: Dose Right [facility]: Teradose 4D [facility]: [employer] CONTRAST TYPE AND DOSE: 94 mL Isovue 370- low osmolar. RENAL FUNCTION: BUN 9 creatinine 0.85. RADIATION DOSE: . LIMITATIONS: None. FINDINGS: LUNGS AND PLEURA: Faint indistinct ground-glass opacities in the upper lobes, left greater than right. No lobar infiltrate. No pulmonary nodules or masses No pneumothorax. No effusions. HILAR AND MEDIASTINAL STRUCTURES: No identified masses or abnormal nodes. HEART AND VASCULAR STRUCTURES: No aneurysm or dissection. No central pulmonary emboli. No pericardi al effusion. HARDWARE: None in the chest. UPPER ABDOMEN: No significant findings. Limited exam. THYROID AND OTHER SOFT TISSUES: No masses. No adenopathy. BONES: No significant finding. OTHER: No other significant finding. IMPRESSION: FAINT GROUND-GLASS OPACITIES IN THE UPPER LOBES, LEFT GREATER THAN RIGHT. NONSPECIFIC. MAY BE DUE TO ATELECTASIS, INFLAMMATION, OR INFECTION. TECHNICAL DOCUMENTATION: JOB ID: [id number] Quality ID # [id number]: Final reports with documentation of one or more dose reduction techniques (e.g., Au tomated exposure control, adjustment of the mA and/or kV according to patient size, use of iterative reconstruction technique) 2010 [employer]- All Rights Reserved Reading location - IP/workstation name: [email or web address]
--- NOTE | 2017-10-30 19:44 | RADIOLOGY REPORT (SQ) ---
EXAM DESCRIPTION: CT ABD/PELVIS WITH IV ORAL COMPLETED DATE/TIME: 10/30/2017 6:17 pm REASON FOR STUDY: Recurrent fever COMPARISON: None. TECHNIQUE: CT scan of the abdomen and pelvis performed with intravenous and oral contrast using yeimi cameron scanning technique with dynamic intravenous contrast injection. Images reviewed with lung, soft t issue, and bone windows. Reconstructed coronal and sagittal MPR images reviewed. Delayed images for e valuation of the urinary system also acquired. All images stored on PACS. All CT scanners at this facility use dose modulation, iterative reconstruction, and/or weight based d osing when appropriate to reduce radiation dose to as low as reasonably achievable (ALARA). [facility]: Dose Right [facility]: CareDose [facility]: Dose Right [facility]: Teradose 4D [facility]: [employer] CONTRAST TYPE AND DOSE: contrast/concentration: Isovue 370.00 mg/ml; Total Contrast Delivered: 94.0 ml; Total Saline Delivered: 48.2 ml RENAL FUNCTION: BUN 9 creatinine 0.85. RADIATION DOSE: CT Rad equipment meets quality standard of care and radiation dose reduction techniq ues were employed. CTDIvol: 10.0 - 14.8 mGy. DLP: 1480 mGy-cm.. LIMITATIONS: None. FINDINGS: LOWER CHEST: No significant findings. No nodules or infiltrates. LIVER: Normal size. No masses. No dilated ducts. SPLEEN: Normal size. No focal lesions. PANCREAS: No masses. No significant calcifications. No adjacent inflammation or peripancreatic fluid collections. Pancreatic duct not dilated. GALLBLADDER: No identified stones by CT criteria. No inflammatory changes to suggest cholecystitis. ADRENAL GLANDS: No significant masses or asymmetry. RIGHT KIDNEY AND URETER: No solid masses. No significant calcification. No hydronephrosis or hydroure ter. LEFT KIDNEY AND URETER: No solid masses. No significant calcification. No hydronephrosis or hydrouret er. AORTA AND VESSELS: No aneurysm. No dissection. Renal arteries, SMA, celiac without stenosis. RETROPERITONEUM: No retroperitoneal adenopathy, hemorrhage or masses. BOWEL AND PERITONEAL CAVITY: No obstruction. No visualized masses. No free fluid. No inflammatory ch anges or thickening of bowel wall. APPENDIX: Not visualized. PELVIS: No significant masses. Normal bladder. No free fluid. ABDOMINAL WALL: No masses. No hernias. BONES: No significant or acute findings. OTHER: No other significant finding. IMPRESSION: NO SIGNIFICANT OR ACUTE FINDINGS IN THE ABDOMEN OR PELVIS. TECHNICAL DOCUMENTATION: JOB ID: [id number] Quality ID # [id number]: Final reports with documentation of one or more dose reduction techniques (e.g., Au tomated exposure control, adjustment of the mA and/or kV according to patient size, use of iterative reconstruction technique) 2010 [employer]- All Rights Reserved Reading location - IP/workstation name: [email or web address]
--- NOTE | 2017-10-30 20:33 | XCELERA REPORT ---
[address] [address] Transthoracic Echocardiogram Report Name: SHARAN BRIONES Age: 42 yrs Gender: Female : 1975 Patient Status: Inpatient Patient Location: [address] [place] [address] Study Date: 10/30/2017 10:18 AM Height: 67 in Weight: 192 lb BSA: 2.0 m2 Procedure: A complete two-dimensional transthoracic echocardiogram was performed (2D, M-mode, spectral and color flow Doppler). The study was technically adequate with some images being suboptimal in quality. Reason For Study: tia Ordering Physician: JOSE CARVALHO Performed By: Silvia Scott Interpretation Summary The left ventricular ejection fraction is normal. There is borderline concentric left ventricular hypertrophy. Doppler measurements suggest impaired left ventricular relaxation, which is associated with grade I/IV or mild diastolic dysfunction Wall motion cannot be accurately commented on, but no definite regional wall motion abnormalities noted. The left ventricle is grossly normal size. The right ventricular systolic function is normal. The left atrial size is normal. The right atrium is normal in size There is no mitral regurgitation noted. There is no mitral valve stenosis. There is no aortic valve stenosis No aortic regurgitation is present. There is a trace or physiologic amount of tricuspid regurgitation Tricuspid regurgitation jet envelope not well defined to measure RV systolic pressure accurately. The aortic root is not well visualized but is probably normal size. The inferior vena cava appeared normal and decreased > 50% with respiration (RAP 5-10 mmHg) There is no pericardial effusion. No definite cardiac source of CVA/TIA noted on this particular trans- thoracic study. Consider SURI if clinically indicated. May consider mobile cardiac telemetry monitoring (MCT) for ruling out transient AFIB. MMode/2D Measurements & Calculations RVDd: 3.1 cm LVIDd: 4.7 cm FS: 40.7 % Ao root diam: 3.0 cm IVSd: 0.95 cm LVIDs: 2.8 cm EDV(Teich): 102.0 ml LVPWd: 0.88 cm ESV(Teich): 29.2 ml Ao root area: 7.3 cm2 EF(Teich): 71.4 % Doppler Measurements & Calculations MV E max nahomi: MV dec slope: Ao V2 max: LV V1 max P.8 cm/sec 109.9 cm/sec 3.5 mmHg MV A max nahomi: 372.1 cm/sec2 Ao max PG: LV V1 max: 82.0 cm/sec MV dec time: 4.8 mmHg 94.1 cm/sec MV E/A: 1.2 0.26 sec PA V2 max: PI end-d nahomi: TR max nahomi: 73.4 cm/sec 80.4 cm/sec 222.6 cm/sec PA max PG: TR max P.2 mmHg 19.8 mmHg Left Ventricle The left ventricle is grossly normal size. There is borderline concentric left ventricular hypertrophy. The left ventricular ejection fraction is normal. Doppler measurements suggest impaired left ventricular relaxation, which is associated with grade I/IV or mild diastolic dysfunction. Wall motion cannot be accurately commented on, but no definite regional wall motion abnormalities noted. Right Ventricle The right ventricle is grossly normal size. There is normal right ventricular wall thickness. The right ventricular systolic function is normal. Atria The right atrium is normal in size. The left atrial size is normal. The interatrial septum is intact with no evidence for an atrial septal defect. Mitral Valve The mitral valve is grossly normal. There is no mitral valve stenosis. There is no mitral regurgitation noted. Aortic Valve The aortic valve is grossly normal. There is no aortic valve stenosis. No aortic regurgitation is present. Tricuspid Valve The tricuspid valve is not well visualized secondary to technical limitations. There is no tricuspid stenosis. There is a trace or physiologic amount of tricuspid regurgitation. Tricuspid regurgitation jet envelope not well defined to measure RV systolic pressure accurately. Pulmonic Valve The pulmonic valve is not well visualized. Great Vessels The aortic root is not well visualized but is probably normal size. The inferior vena cava appeared normal and decreased > 50% with respiration (RAP 5-10 mmHg). Effusions There is no pericardial effusion. Incidental Findings No definite cardiac source of CVA/TIA noted on this particular trans- thoracic study. Consider SURI if clinically indicated. May consider mobile cardiac telemetry monitoring (MCT) for ruling out transient AFIB. : JOSE CARVALHO Cesar Esquivel
[2017-10-31 05:03] LABS: ABSOLUTE BASOPHILS # (AUTO) 0.1 10^3/uL (0.0-0.2); ABSOLUTE EOSINOPHILS # (AUTO) 0.3 10^3/uL (0.0-0.6); ABSOLUTE MONOCYTES (AUTO) 0.5 10^3/uL (0.1-1.4); ABSOLUTE NEUT (AUTO) 4.9 10^3/uL (1.7-8.2); BASOPHILS % (AUTO) 0.9 % (0-2); EOSINOPHILS % (AUTO) 3.4 % (0-6); HEMATOCRIT 39.3 % (36.0-47.0); HEMOGLOBIN 12.9 g/dL (12.0-15.5); LYMPHOCYTES % (AUTO) 40.5 % (13-45); MEAN CORPUSCULAR HGB CONC 32.8 g/dL (32.0-36.0); MEAN CORPUSCULAR VOLUME 88 fl (80-97); PLATELET COUNT 268 10^3/uL (150-450); RED BLOOD COUNT 4.44 10^6/uL (3.72-5.28); RED CELL DISTRIBUTION WIDTH 14.5 % (11.5-14.0); SEGMENTED NEUTROPHILS % (AUTO) 50.2 % (42-78); TOTAL CELLS COUNTED % (AUTO) 100 %; WHITE BLOOD COUNT 9.8 10^3/uL (4.0-10.5)
[2017-10-31] MEDS: LANSOPRAZOLE 30 MG TAB.RAP.DR PO SCH (05:46)
[2017-10-31 08:30] LABS: LYME DISEASE IGM AB <0.80 index (0.00-0.79)
[2017-10-31 08:30] LABS: ATYPICAL PANCA <1:20 titer (Neg:<1:20); PERINUCLEAR (P-ANCA) <1:20 titer (Neg:<1:20)
[2017-10-31] MEDS ORDERED: ESCITALOPRAM OXALATE 10 MG TABLET PO SCH (10:00)
[2017-10-31 13:13] VITALS: BP 105/61
--- NOTE | 2017-10-31 15:11 | Physician Advisory Note ---
Physician Advisor ProgressNote .: Pursuant to the plan for [facility], I have reviewed the medical record for this patient. Physician Advisor Statement: Please Specify most likely type of altered mental status present: A. Metabolic Encephalopathy, possibly due to (or "unknown cause") = AMS due to acute or chronic medical disease state, such as systemic metabolic or intracranial process that is usually reversible when the underlying cause is corrected. - Causes include fever, infection, dehydration, acidosis, sepsis, hypoxia, electrolyte imbalance, B. Toxic Encephalopathy, possibly due to =AMS due to drug, poison, or toxin. Usually reversible. C. Acute Delirium, possibly due to =nonspecific disorientation/behavioral problem with a cause that can be psychiatric, encephalopathic, or intracranial. *If documentation does not specify the underlying cause of delirium, the ICD-10 coding classification attributes it to a psychiatric origin (such as schizophrenia, rose mary, or rapid progression of dementia), with a correspondingly lower severity of illness, than if there is encephalopathy present. -Cause example: "Delirium, suspect due to Metabolic Encephalopathy, possibly due to D. Specify type & likely cause of Altered Level of Consciousness ( nonspecific): needs precise terms based on Total Avni Coma Scale: Total GCS= 13-15 lethargy/drowsiness Potential causes include acute intra- cranial processes (stroke, traumatic lesions), overdose. May be associated with CEREBRAL EDEMA, BRAIN COMPRESSION or BRAIN HERNIATION. Total GCS= 9-12 stupor/obtundation Total GCS= 3-8 COMA E. "Acute cerebrovascular insufficiency", or "reversible cerebrovascular vasoconstrictin syndrome", or ... Thanks! Sounds like a difficult case! CK
--- NOTE | 2017-10-31 16:57 | PDOC DISCHARGE SUMMARY ---
General - Admit/Disc Date/PCP Admission Date/Primary Care Provider: 10/29/17 16:42 RON YUSUF MD Discharge Date: 10/31/17 - Discharge Diagnosis (1) Transient confusion Is this a current diagnosis for this admission?: Yes Summary: Has not occurred here since admission. Multiple send out labs are still pending. She will need to follow-up with her primary care physician for those results, and plan further workup. (2) Recurrent fever of unknown cause Is this a current diagnosis for this admission?: Yes Summary: Has not occurred since admission. Outpatient follow-up. Consider follow-up with neurology, infectious disease, rheumatology. Results of pending labs may guide that decision. - Additional Information Resuscitation Status: Full Code Discharge Diet: Regular Discharge Activity: Activity As Tolerated Home Medications: Ranitidine HCl [Zantac 150 mg Tablet] 150 mg PO DAILY 02/18/14 Escitalopram Oxalate [Lexapro 10 mg Tablet] 30 mg PO DAILY 10/29/17 Fluticasone/Vilanterol [Breo Ellipta 100-25 Mcg INH] 1 each IH DAILY 10/29/17 History of Present Illness History of Present Illness: SHARAN BRIONES is a 42 year old female who presented to the ER and is with her family. The patient is a poor historian and is somewhat confused and does not recall the events since last night. 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 They did not notice facial droop or focal weakness. Her coworkers wanted her to come to the ED but she refused. Family however convinced her to come in. Her son reports that last night she complained of numbness and tingling of the right side of her body. patient does not recall this. When evaluated by the ER physician- she had no slurred speech or focal symptoms - NIH stroke scale-0. CT brain and MRI withinh normal limits. She has a mild leukocytosis and reports fever. The family reports a one year history of high grade fevers lasting upto a week, temp up to 102 degrees F. This is associated with joint pain and swelling. No associated dysuria/ cough/sore throat/ abdominal/diarrhea. Reports no unintentional weight loss but has been having night sweats. 2 year history of episodes of confusion and was worked up for possible seizures (negative EEG per family), also told she had complex migraines. She had abnormal LFTs recently and has positive tick exposure and a recent red rash under her L arm. never worked up for MS. Was seeing a neurologist in [place]- has not seen one in more than a year. Patient is a very poor historian and the history is very fragmented. Mammogram 6 months ago was reportedly normal. She is awake alert and oriented x3 but slow to respond to questions. No slurred speech. I explained to them that we do not have a Neurologist available but can do further testing to rule out tick born or other indolent ASSISTANT AUDITOR infection including LP- CSF studies. They are agreeable. Hospital Course Hospital Course: She underwent an MRI of her head which was nondiagnostic, CT chest abdomen and pelvis also nondiagnostic there were CT chest did show some faint indistinct groundglass opacities in the upper lobes left greater than right. Nonspecific. She underwent an LP which was grossly nondiagnostic though viral and bacterial cultures, electrophoresis, HSV, Lyme Western blot are still pending. DORIS and subtypes were uniformly negative. RPR was nonreactive. Lyme screen was undetectable. Carotid Dopplers showed no significant stenosis. Echocardiogram showed no explanation for her transient loss of consciousness. She had a normal ejection fraction, grade 1 out of 4 diastolic dysfunction, no significant valvular disease. At this point, I think we need to wait for the results of her labs noted above. As was explained to her when she came in, we do not have neurology, infectious disease, or rheumatology. I do not think this is an urgent matter that requires transfer, so I will discharge her and have her follow-up with her primary care physician to determine the future course of her workup. Physical Exam Vital Signs: Temp Pulse Resp BP Pulse Ox 97.4 F 58 L 16 105/61 96 10/31/17 13:10 10/31/17 13:10 10/31/17 13:10 10/31/17 13:10 10/31/17 13:10 Pulse Oximeter Nocturnal Start: 10/30/17 14: 58 Freq: RTQ4 Status: Complete Document 10/31/17 04:00 SFL (Rec: 10/31/17 04:35 SFL [id number]) Nocturnal Pulse Oximetry Equipment Usage Equipment in Use Oxygen Delivery Method (includes room Room Air air) O2 Sat by Pulse Oximetry (92-100) 95 Continuous SpO2 Machine # 11 Intake & Output 10/30/17 10/31/17 11/01/17 05:59 05:59 05:59 Intake Total 15 3891 375 Balance 15 2437 375 Weight 192 lb 3.889 oz 191 lb 12.835 oz General appearance: PRESENT: no acute distress, obese Head exam: PRESENT: atraumatic Respiratory exam: PRESENT: clear to auscultation devyn Cardiovascular exam: PRESENT: RRR GI/Abdominal exam: PRESENT: soft. ABSENT: tenderness Extremities exam: ABSENT: pedal edema Musculoskeletal exam: PRESENT: normal inspection Neurological exam: PRESENT: alert Psychiatric exam: PRESENT: appropriate affect Skin exam: PRESENT: warm Results Laboratory Results: 10/31/17 04:11 10/30/17 04:18 10/30/17 10/31/17 09:22 04:11 WBC 9.8 RBC 4.44 Hgb 12.9 Hct 39.3 MCV 88 MCH 29.0 MCHC 32.8 RDW 14.5 H Plt Count 268 Seg Neutrophils % 50.2 Lymphocytes % 40.5 Monocytes % 5.0 Eosinophils % 3.4 Basophils % 0.9 Absolute Neutrophils 4.9 Absolute Lymphocytes 4.0 Absolute Monocytes 0.5 Absolute Eosinophils 0.3 Absolute Basophils 0.1 CSF VDRL Non Reactive Impressions: Chest X-Ray 10/29/17 12:54 IMPRESSION: NO ACUTE RADIOGRAPHIC FINDING IN THE CHEST. Head CT 10/29/17 12:54 IMPRESSION: NORMAL BRAIN CT WITHOUT CONTRAST. EVIDENCE OF ACUTE STROKE: NO. Head MRI 10/29/17 13:35 IMPRESSION: Unremarkable study. No MR evidence of acute ischemic change. EVIDENCE OF ACUTE STROKE: NO. Abdomen/Pelvis CT 10/30/17 00:00 IMPRESSION: NO SIGNIFICANT OR ACUTE FINDINGS IN THE ABDOMEN OR PELVIS. Carotid Doppler Study 10/30/17 00:00 IMPRESSION: NO HEMODYNAMICALLY SIGNIFICANT STENOSIS. Chest CT 10/30/17 00:00 IMPRESSION: FAINT GROUND-GLASS OPACITIES IN THE UPPER LOBES, LEFT GREATER THAN RIGHT. NONSPECIFIC. MAY BE DUE TO ATELECTASIS, INFLAMMATION, OR INFECTION. Guidance Fluoroscopy 10/30/17 00:00 IMPRESSION: Lumbar puncture under fluoroscopy. No immediate complication. Lab analysis of fluid is pending. Lumbar Puncture 10/30/17 00:00 IMPRESSION: Lumbar puncture under fluoroscopy. No immediate complication. Lab analysis of fluid is pending. Qualifiers - * PATIENT BEING DISCHARGED WITH ANY OF THE FOLLOWING DIAGNOSIS: No
--- NOTE | 2017-11-01 08:55 | EEG PRO FEE REPORT ---
EEG INTERPRETATION PATIENT NAME: SHARAN BRIONES ROOM#: [id number] ORDER#: [id number] DATE OF STUDY: 10/31/2017 : 1975 REFERRING MD: JOSE CORTES M.D. MEDICATIONS Tylenol, Fioricet, Ventolin, Lexapro, Prevacid, Zofran History This is a 42 year old woman with history of migraines, hypercholesterolemia, depression, asthma, anemia admitted with altered mental status and leukocytosis. This EEG was requested for possible seizures. EEG Interpretation This EEG was recorded in the awake, drowsy and sleep states. The awake EEG is characterized by an organized background with a well developed and reactive posterior dominant rhythm of 8 Hz. Drowsiness is characterized by the slowing of the background rhythms. Vertex waves were seen in the midline head region. Photic stimulation resulted in no significant changes. Hyperventilation resulted in generalized slowing. There was a lot of artifact consistent with muscle artifact throughout the recording. There was no epileptiform activity noted. EEG Classification 1. Mild generalized background slowing. EEG Impression This is a mildly abnormal EEG. It is characterized by a mild generalized background slowing consistent with a mild diffuse encephalopathy. INTERPRETING PHYSICIAN: ANGELICA ALDRICH M.D. /: MTEFFT TT: [id number] ID: [id number] /: [id number] TD: [id number] JOB: [id number] cc:Sarabjit CLOUD M.D. > MTDD
[2017-11-01 17:37] LABS: ALPHA-1-GLOBULIN 1 5.3 % (1.1-6.6); ALPHA-2-GLOBULIN 5.7 % (3.0-12.6); CSF ALBUMIN 63.9 % (56.8-76.4); PRE ALBUMIN 2.6 % (2.2-7.1)
[2017-11-01 21:08] LABS: HSV I DNA Negative (Negative)
[2017-11-02 12:06] LABS: HSV II DNA Negative (Negative); PROT ELEC MSPIKE Not Observed % (Not Observ)
[2017-11-05 18:36] LABS: LYME P18 AB IGG CSF Absent (.); LYME P23 AB IGG CSF Absent (.); LYME P23 AB IGM CSF Absent (.); LYME P28 AB IGG CSF Absent (.); LYME P39 AB IGM CSF Absent (.); LYME P41 AB IGG CSF Absent (.); LYME P41 AB IGM CSF Absent (.); LYME P58 AB IGG CSF Absent (.); LYME P66 AB IGG CSF Absent (.); LYME P93 AB IGG CSF Absent (.)
[2017-11-06 07:11] LABS: LYME IGG WB CSF INTERP Negative (.); LYME IGM WB CSF INTERP Negative (.)
== END 2017-10-31 14:44 | disposition home or self-care (01) | DRG 884 ==
LOC: ER 12:49 → UNDOADMOB 16:38 → EH 16:38 → OBSVTOIN 16:42 → EH 16:42 → INTOOBSV 16:42 → 3N 19:53
PROVIDERS: ADMIT Internal Medicine; ATTEND Internal Medicine
PROC: 009U3ZX Drainage of Spinal Canal, Percutaneous Approach, Diagnostic (ICD-10-PCS; principal; 2017-10-30)
PROC: B01BZZZ Fluoroscopy of Spinal Cord (ICD-10-PCS; 2017-10-30)
DX: R40.4 Transient alteration of awareness (principal); D72.829 Elevated white blood cell count, unspecified; R50.9 Fever, unspecified; R51 Headache; K21.9 Gastro-esophageal reflux disease without esophagitis; E78.5 Hyperlipidemia, unspecified; F32.9 Major depressive disorder, single episode, unspecified; F17.210 Nicotine dependence, cigarettes, uncomplicated
CPT/HCPCS: 36415; 62270; 70450; 70551; 71045; 71260; 74177; 77003; 80053; 80061; 81001; 82550; 82553; 82945; 83036; 83516; 83735; 83916; 84100; 84157; 84166; 84443; 84484; 85025; 85610; 85652; 85730; 86140; 86225; 86235; 86256; 86403; 86430; 86592; 86617; 86618; 86701; 87040; 87070; 87205; 87252; 87529; 89050; 93005; 93010; 93306; 93880; 94762; 95819; 96374; 96375; 99285; J1200; J1885; J2765

== ENCOUNTER → 2017-12-29 | Outpatient (CLI) | payer OTHER ==
--- NOTE | 2017-12-30 09:04 | RADIOLOGY REPORT (SQ) ---
EXAM DESCRIPTION: MRI HEAD WITHOUT COMPLETED DATE/TIME: 12/29/2017 4:58 pm REASON FOR STUDY: HEADACHE R51 HEADACHE COMPARISON: None. TECHNIQUE: Multiplanar imaging includes non-contrasted T1, T2, FLAIR, and diffusion with ADC map seq uences. Images stored on PACS. LIMITATIONS: None. FINDINGS: ANATOMY: No anomalies. Normal vascular flow voids. Pituitary fossa normal. CSF SPACES: Normal in size and contour. No hemorrhage. CEREBRUM: Sulci and gyri normal in size and contour. Normal white matter signal on FLAIR imaging. No evidence of hemorrhage, mass, or extraaxial fluid collection. POSTERIOR FOSSA: No signal alteration. No hemorrhage. No edema, masses or mass effect. Internal oz tory canals, cerebello-pontine angles, mastoids normal. DIFFUSION IMAGING: Negative for acute or sub-acute infarction. ORBITS: No masses. Globes normal. PARANASAL SINUSES: Mucosal thickening right maxillary sinus. OTHER: No other significant finding. IMPRESSION: NORMAL MRI OF THE BRAIN WITHOUT INTRAVENOUS GADOLINIUM CONTRAST. EVIDENCE OF ACUTE STROKE: NO. TECHNICAL DOCUMENTATION: JOB ID: [id number] [employer]- All Rights Reserved Reading location - IP/workstation name: [email or web address]
== END ==
LOC: RAD 14:38
PROVIDERS: ATTEND Psychiatry & Neurology Neurology
DX: H53.9 Unspecified visual disturbance (principal); R51 Headache; R53.1 Weakness; R29.810 Facial weakness
CPT/HCPCS: 70551